=== PATIENT | male | born 1970 | race Caucasian/White ===

== ENCOUNTER 2019-03-14 21:11 | Emergency (ER) | payer OTHER ==
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
== END 2019-03-14 21:56 ==
LOC: MW.ED 21:11
DX: Z13.9 Encounter for screening, unspecified (principal); F17.210 Nicotine dependence, cigarettes, uncomplicated
CPT/HCPCS: 99282; 99283